=== PATIENT | male | born 1975 ===

== ENCOUNTER 2020-12-18 20:02 | Emergency (ER) | payer SELFPAY ==
[2020-12-18 22:10] LABS: Basophils % (Auto) 0.2 % (0.0-1.8); Eosinophils % (Auto) 0.3 % (0.0-4.3); Hematocrit 46.9 % (35.5-45.6); Hemoglobin 15.7 gm/dl (11.8-15.2); Lymphocytes # (Auto) 1.2 K/mm3 (1.2-5.4); Lymphocytes % (Auto) 10.1 % (13.4-35.0); Mean Corpuscular HGB Conc 34 % (32-34); Mean Corpuscular Volume 91 fl (84-94); Monocytes # (Auto) 0.9 K/mm3 (0.0-0.8); Monocytes % (Auto) 7.6 % (0.0-7.3); Platelet Count 255 K/mm3 (140-440); Red Blood Count 5.13 M/mm3 (3.65-5.03)
--- NOTE | 2020-12-18 22:17 | XRay Report ---
CHEST 2 VIEWS INDICATION / CLINICAL INFORMATION: chest pain. COMPARISON: None available. FINDINGS: SUPPORT DEVICES: None. HEART / MEDIASTINUM: No significant abnormality. LUNGS / PLEURA: There is mild left basilar atelectasis with otherwise clear lungs. No significant ple ural effusion. No pneumothorax. ADDITIONAL FINDINGS: No significant additional findings. IMPRESSION: 1. No acute abnormality of the chest. 2. Mild left basilar atelectasis. Signer Name: Gurdeep Hauser MD Signed: 12/18/2020 10:13 PM Workstation Name: [id number]
[2020-12-18 22:18] LABS: Alanine Aminotransferase 33 units/L (7-56); Albumin 4.2 g/dL (3.9-5); Blood Urea Nitrogen 10 mg/dL (9-20); Calcium 9.1 mg/dL (8.4-10.2); Hemolysis Index 9
[2020-12-18 22:19] LABS: BUN/Creatinine Ratio 14
--- NOTE | 2020-12-18 22:45 | Event Note ---
ED Screening Note Date of service: 12/18/20 Time: 22:43 ED Screening Note: 45-year-old male patient presents to the emergency department with complaints of traumatic headache and back pain starting yesterday. Patient states he fell approximately 7 feet onto his lower back and struck the back of his head. Patient reportedly lost consciousness after striking his head. General: Awake, appropriately interactive, no acute distress. Neck: Supple. Full range of motion intact. Cardiovascular: Normal peripheral perfusion. Pulmonary: No respiratory distress. Patient is speaking normally without use of accessory muscles. Skin: No apparent rashes or lesions. Neurological: No facial asymmetry. Speech is clear. Follows commands. Patient is alert and oriented. Musculoskeletal: Moves all four extremities spontaneously with normal range of motion. Psych: Cooperative. Appropriate mood and affect. I have greeted and performed a focused rapid initial assessment of this patient. A comprehensive ED assessment and evaluation of the patient, analysis of all test results, and completion of the medical decision-making process will be conducted by additional ED providers. This initial assessment/diagnostic orders/clinical plan/treatment(s) is/are subject to change based on patients health status, clinical progression and re-assessment. Further treatment and workup at subsequent clinical provider's discretion. Patient/guardian urged not to elope from the ED as their condition may be serious if not clinically assessed and managed.
--- NOTE | 2020-12-18 23:24 | Emergency Department Report ---
ED Fall HPI - General Chief Complaint: Fall Stated Complaint: FELL HIT HEAD Time Seen by Provider: 12/18/20 23:18 Source: patient Mode of arrival: Ambulatory - History of Present Illness Initial Comments: Patient is a 45-year-old male who presents emergency room with complaints of headache and right lower back pain after a fall. Patient states she was on a ladder approximately 1 stories up and he slipped and fell back and landed on his lower back and the back of his head. Patient states after he hit his head he had a brief loss of consciousness. Patient states that it happened yesterday but the headache is worsening. Patient states the headache is a 10 out of 10. Patient states the headache is better with rest and worse with movement. Patient states that he is having lower back pain and its 4 out of 10. Patient states the back pain is better with rest and worse with movement and bending patient denies other injuries. Patient denies neck pain. Patient denies mid back pain. Patient denies chest pain. Patient denies any symptoms prior to falling but states that he just slipped on the ladder and fell backwards. Patient denies blurry vision. Patient denies chest pain and shortness of breath. Patient denies recent travel. Patient denies recent international travel. Patient denies exposure to the novel coronavirus. Patient denies sick contacts. Patient denies fever and chills. Patient denies cough. Patient denies diarrhea. Patient denies coming in contact with anybody with symptoms of the novel coronavirus. 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 denies: neck pain, numbness, weakness, chest paint, shortness of breath, abdominal pain, hematuria, unable to walk, lightheaded, vertigo, confusion - Related Data Allergies Allergy/AdvReac Type Severity Reaction Status Date / Time No Known Allergies Allergy Unverified 12/18/20 22:18 ED Review of Systems ROS: Stated complaint: FELL HIT HEAD Other details as noted in HPI Constitutional: denies: chills, fever Eyes: denies: eye pain, eye discharge, vision change ENT: denies: ear pain, throat pain Respiratory: denies: cough, shortness of breath, wheezing Cardiovascular: denies: chest pain, palpitations Endocrine: no symptoms reported Gastrointestinal: denies: abdominal pain, nausea, diarrhea Genitourinary: denies: urgency, dysuria Musculoskeletal: as per HPI, back pain. denies: joint swelling, arthralgia Skin: denies: rash, lesions Neurological: as per HPI, headache. denies: weakness, paresthesias Psychiatric: denies: anxiety, depression Hematological/Lymphatic: denies: easy bleeding, easy bruising ED Past Medical Hx - Past Medical History Previous Medical History?: No - Surgical History Past Surgical History?: No - Family History Family history: no significant - Social History Smoking Status: Never Smoker Substance Use Type: None ED Physical Exam - General Limitations: No Limitations General appearance: alert, in no apparent distress - Head Head exam: Present: atraumatic, normocephalic - Eye Eye exam: Present: normal appearance, PERRL Pupils: Present: normal accommodation - ENT ENT exam: Present: mucous membranes moist - Neck Neck exam: Present: normal inspection - Respiratory Respiratory exam: Present: normal lung sounds bilaterally. Absent: respiratory distress, wheezes, rales - Cardiovascular Cardiovascular Exam: Present: regular rate, normal rhythm. Absent: systolic murmur, diastolic murmur, rubs, gallop - GI/Abdominal GI/Abdominal exam: Present: soft, normal bowel sounds - Rectal Rectal exam: Present: deferred - Extremities Exam Extremities exam: Present: normal inspection, full ROM. Absent: tenderness - Back Exam Back exam: Present: normal inspection, tenderness, paraspinal tenderness. Absent: vertebral tenderness - Neurological Exam Neurological exam: Present: alert, oriented X3, CN II-XII intact, normal gait. Absent: motor sensory deficit - Psychiatric Psychiatric exam: Present: normal affect, normal mood - Skin Skin exam: Present: warm, dry, intact, normal color. Absent: rash ED Course Vital Signs 12/18/20 20:36 Temperature 98.2 F Pulse Rate 71 Respiratory 18 Rate Blood Pressure 105/63 [Left] O2 Sat by Pulse 100 Oximetry - Reevaluation(s) Reevaluation #1: I discussed all results and clinical findings with patient. I discussed plan of care with patient. Patient agrees with plan of care. Patient is stable for transfer.. 12/19/20 00:39 - Consultations Consultation #1: I discussed with Dr. Jain, [facility]. Dr. Jain has accepted the patient to be transferred ER to ER. 12/19/20 00:39 ED Medical Decision Making - Lab Data Result diagrams: 12/18/20 21:45 12/18/20 21:45 - Radiology Data Radiology results: report reviewed, image reviewed interpreted by me: Chest x-ray: No pneumonia, no pneumothorax, no foreign body, no osseous findings, no acute findings Lumbar x-ray: No acute fracture, no acute findings, no foreign body. CT HEAD WITHOUT CONTRAST INDICATION / CLINICAL INFORMATION: Head injury with L.O.C. from a fall off of a ladder.. TECHNIQUE: All CT scans at this location are performed using CT dose reduction for ALARA by means of automated exposure control. COMPARISON: None available. FINDINGS: There is acute intracranial hemorrhage within the left temporal lobe. Questionable low signal attenuation within the left upper lobe is noted as well. No midline shift or mass effect. Ventricles are normal in size and appearance. No displaced fracture is definitely seen. There is opacification with mild increased density in the right sphenoid sinus. Mild ethmoid sinus disease Linear density along the right occipital bone may represent occipital bone fracture extending to the skull base of the right. There is hemorrhage in the overlying cerebellum and skull base. Hemorrhage overlying the right cerebellum measures 1.1 cm on coronal images. Visualized orbital froman appear intact. ADDITIONAL FINDINGS: None. IMPRESSION: 1. Acute hemorrhage within the left temporal lobe. No midline shift or mass effect. 2. Nondisplaced fracture within the right occipital bone extending to the skull base. There is blood products with opacification right sphenoid sinus and diffuse ethmoid sinus disease 3. Acute hemorrhage within the right posterior cranial fossa superficial to the cerebellum could represent epidural hemorrhage with overlying fracture. This hemorrhage measures 1.1 cm. Lumbar spine 2 views INDICATION: Back pain FINDINGS: Alignment appears normal. Mild wedging at T11 and T12 superior endplates. Given recent history of fall compression injury to the superior endplate cannot be excluded. No severe loss of vertebral body height or retropulsion. MRI follow-up could be performed CHEST 2 VIEWS INDICATION / CLINICAL INFORMATION: chest pain. COMPARISON: None available. FINDINGS: SUPPORT DEVICES: None. HEART / MEDIASTINUM: No significant abnormality. LUNGS / PLEURA: There is mild left basilar atelectasis with otherwise clear lungs. No significant pleural effusion. No pneumothorax. ADDITIONAL FINDINGS: No significant additional findings. IMPRESSION: 1. No acute abnormality of the chest. 2. Mild left basilar atelectasis. - Medical Decision Making Patient is a 45-year-old male who presents emergency room for severe headache after a fall and lower back pain. Patient fell back off a ladder landed directly on a concrete pad. Patient complained of the worst headache he has ever had. Patient had a head CT which was positive for a intracranial hemorrh age and a skull fracture. Patient had an x-ray of the chest and the lower back and the chest was negative lower back was negative. I personally reviewed the x-rays. Patient had labs done which were essentially unremarkable. The CT findings were reported to me, I then discussed the case with [facility]. Patient has been accepted to [facility]. Patient is stable for transfer. Patient is accepted in transfer ER to ER to [facility]. Critical care time documented due to the multiple reassessments, prolonged time at the bedside, interpretation of diagnostics and labs. - Differential Diagnosis ICH, fall, headache, skull fracture, lower back pain, lumbar fracture. Critical Care Time: Yes Critical care time in (mins) excluding proc time.: 35 Critical care attestation.: If time is entered above; I have spent that time in minutes in the direct care of this critically ill patient, excluding procedure time. Critical Care Time: 35 minutes ED Disposition Clinical Impression: Intracranial hemorrhage Skull fracture Qualifiers: Encounter type: initial encounter Skull bone/location: occipital bone Fracture type: closed Occipital fracture type: unspecified fracture of occiput La terality: unspecified laterality Qualified Code(s): S02.119A - Unspecified fracture of occiput, initial encounter for closed fracture Epidural hemorrhage Qualifiers: Encounter type: initial encounter Loss of consciousness presence/duration: with LOC of 30 min or less Qualified Code(s): S06.4X1A - Epidural hemorrhage with loss of consciousness of 30 minutes or less, initial encounter Head injury Qualifiers: Encounter type: initial encounter Qualified Code(s): S09.90XA - Unspecified injury of head, initial encounter Headache Qualifiers: Headache type: post-traumatic Headache chronicity pattern: acute headache Intractability: intractable Qualified Code(s): G44.311 - Acute post-traumatic headache, intractable Fall Qualifiers: Encounter type: initial encounter Qualified Code(s): W19.XXXA - Unspecified fall, initial encounter Lower back pain Qualifiers: Chronicity: acute Back pain laterality: right Sciatica presence: without sciatica Qualified Code(s): M54.5 - Low back pain Disposition: [facility] Is pt being admited?: No Does the pt Need Aspirin: No Condition: Critical Time of Disposition: 00:44
--- NOTE | 2020-12-18 23:58 | XRay Report ---
Lumbar spine 2 views INDICATION: Back pain FINDINGS: Alignment appears normal. Mild wedging at T11 and T12 superior endplates. Given recent hist ory of fall compression injury to the superior endplate cannot be excluded. No severe loss of vertebr al body height or retropulsion. MRI follow-up could be performed Signer Name: Ugo Ignacio MD Signed: 12/18/2020 11:53 PM Workstation Name: [id number]
--- NOTE | 2020-12-19 00:33 | Cat Scan Report ---
CT HEAD WITHOUT CONTRAST INDICATION / CLINICAL INFORMATION: Head injury with L.O.C. from a fall off of a ladder.. TECHNIQUE: All CT scans at this location are performed using CT dose reduction for ALARA by means of automated e xposure control. COMPARISON: None available. FINDINGS: There is acute intracranial hemorrhage within the left temporal lobe. Questionable low signal attenua tion within the left upper lobe is noted as well. No midline shift or mass effect. Ventricles are nor mal in size and appearance. No displaced fracture is definitely seen. There is opacification with mil d increased density in the right sphenoid sinus. Mild ethmoid sinus disease Linear density along the right occipital bone may represent occipital bone fracture extending to the skull base of the right. There is hemorrhage in the overlying cerebellum and skull base. Hemorrhage o verlying the right cerebellum measures 1.1 cm on coronal images. Visualized orbital forman appear inta ct. ADDITIONAL FINDINGS: None. IMPRESSION: 1. Acute hemorrhage within the left temporal lobe. No midline shift or mass effect. 2. Nondisplaced fracture within the right occipital bone extending to the skull base. There is blood products with opacification right sphenoid sinus and diffuse ethmoid sinus disease 3. Acute hemorrhage within the right posterior cranial fossa superficial to the cerebellum could repr esent epidural hemorrhage with overlying fracture. This hemorrhage measures 1.1 cm. IMPORTANT FINDING: Time of Communication (COMPUTER EDUCATION TEACHER/CDT): 1126 Licensed Practitioner Receiving Report: Jelani Signer Name: Ugo Ignacio MD Signed: 12/19/2020 12:29 AM Workstation Name: [id number]
[2020-12-19] MEDS ORDERED: ONDANSETRON 4 MG/2 ML INJ IV ONE (00:40)
[2020-12-19] MEDS ORDERED: HYDROmorphone 1 MG/1 ML INJ IV ONE (00:40)
[2020-12-19 01:40] VITALS: BP 146/99
== END 2020-12-19 02:01 | disposition short-term general hospital (02) ==
LOC: ED 20:02
DX: S06.4X1A Epidural hemorrhage with loss of consciousness of 30 minutes or less, initial encounter (principal); S02.91XA Unspecified fracture of skull, initial encounter for closed fracture; S06.9X1A Unspecified intracranial injury with loss of consciousness of 30 minutes or less, initial encounter; M54.5 Low back pain; W19.XXXA Unspecified fall, initial encounter; Y93.89 Activity, other specified; Y92.89 Other specified places as the place of occurrence of the external cause; Y99.8 Other external cause status
CPT/HCPCS: 36415; 70450; 71046; 72100; 80053; 84484; 85025; 96374; 96375; 99291; J1170; J2405